=== PATIENT | male | born 1940 | race Caucasian/White ===

== ENCOUNTER 2022-03-01 13:48 | Emergency (ER) | payer OTHER ==
[2022-03-01 15:19] LABS: Absolute Lymphocytes (CBC) 0.9 K/uL (0.7-4.9); Hematocrit 42.8 % (39.6-49.0); MCV 86.7 fL (80-100); MPV 7.9 fL (7.6-11.3); RBC Red Blood Cell Count 4.94 M/uL (4.33-5.43)
[2022-03-01 15:20] LABS: Protime INR 2.38
--- NOTE | 2022-03-01 15:23 | RAD REPORT ---
EXAM DESCRIPTION: CT - Head Brain Wo Cont - 03/01/2022 3:18 pm CLINICAL HISTORY: dizzy Headache, drowsiness COMPARISON: Head Brain Wo Cont dated 06/28/2018 TECHNIQUE: All CT scans are performed using dose optimization technique as appropriate and may inclu de automated exposure control or mA/KV adjustment according to patient size. FINDINGS: No intracranial hemorrhage, hydrocephalus or extra-axial fluid collection.Mild periventric ular and deep white matter chronic microvascular ischemic changes.No areas of brain edema or evidence of midline shift. Vertebral atherosclerosis. The paranasal sinuses and mastoids are clear. The calvarium is intact. IMPRESSION: No acute intracranial abnormality.
[2022-03-01] MEDS ORDERED: MECLIZINE HCL 12.5 MG TAB ONE (15:28)
[2022-03-01 15:34] LABS: Potassium 4.2 mmol/L (3.5-5.1); Troponin High Sensitivity 9.3 pg/mL (<58.9)
--- NOTE | 2022-03-01 15:52 | RAD REPORT ---
EXAM DESCRIPTION: RAD - Chest Single View - 03/01/2022 3:41 pm CLINICAL HISTORY: AMS Chest pain. COMPARISON: Abdomen 1 View (KUB) dated 09/05/2016; ABDOMEN 1 VIEW KUB dated 09/04/2015; CHEST PA AND L AT 2 VIEW dated 08/27/2014; CHEST PA AND LAT 2 VIEW dated 06/30/2008 FINDINGS: Portable technique limits examination quality. The lungs are grossly clear. The heart is normal in size. Postsurgical changes of a CABG.Dual lead pa cer device is in place. IMPRESSION: No acute intrathoracic process suspected.
--- NOTE | 2022-03-01 16:50 | ER ---
Nurse's Notes [facility] Name: Jose Luis Albright Jr Age: 81 yrs Sex: Male : 1940 Arrival Date: 03/01/2022 Time: 13:50 Bed 4 Private MD: Baldomero Valenzuela R Diagnosis: Dizziness and giddiness Presentation: 03/01 13:58 Chief complaint: Patient states: "this has been going on for a while" ; I am very dizzy [facility] the 6 months to a year - I am on two different blood pressure medications; I can't hardly stand and walk; denies room spinning. I feel like I have a lot of anxiety. Chief complaint:. Coronavirus screen: Vaccine status: Patient reports being unvaccinated. Client denies travel out of the [place] in the last 14 days. Ebola Screen: Patient negative for fever greater than or equal to 101.5 degrees Fahrenheit, and additional compatible Ebola Virus Disease symptoms Patient denies exposure to infectious person. Patient denies travel to an Ebola-affected area in the 21 days before illness onset. Initial Sepsis Screen: Does the patient meet any 2 criteria? No. Patient's initial sepsis screen is negative. Does the patient have a suspected source of infection? No. Patient's initial sepsis screen is negative. Risk Assessment: Do you want to hurt yourself or someone else? Patient reports no desire to harm self or others. Onset of symptoms was 2020. 13:58 Method Of Arrival: Ambulatory [facility] 13:58 Acuity: SHAJI 4 jh5 Triage Assessment: 14:02 General: Appears in no apparent distress. slender, Behavior is calm, cooperative, jh5 anxious. Pain: Denies pain. Historical: - Allergies: 14:02 No Known Allergies; [facility] - Home Meds: 14:02 warfarin 1 mg Oral tab [Active]; atorvastatin 10 mg oral tab [Active]; atenolol 25 mg jh5 Oral tab [Active]; amlodipine oral [Active]; sertraline 20 mg/mL oral conc 5 mL once daily [Active]; - PMHx: 14:02 Hypertensive disorder; [facility] - Immunization history:: Adult Immunizations up to date. - Social history:: Smoking status: Patient denies any tobacco usage or history of. Screenin:54 Abuse screen: Denies threats or abuse. Nutritional screening: No deficits noted. tw2 Tuberculosis screening: No symptoms or risk factors identified. Fall Risk Secondary diagnosis (15 points) impaired mobility. Assessment: 14:12 Reassessment: In triage; the insurance underwriter told the patient she would step out and grab a jh5 provider to see him, at that point the patient became very anxious, breathing heavy and stating his vision is now blurry in both eyes. 14:13 Reassessment: Pt is now slowing his breathing and states his vision is clearing up but jh5 a little bit blurry. 15:00 General: Appears in no apparent distress. comfortable, well groomed, Behavior is ph cooperative, appropriate for age, Denies fever, feeling ill. Pain: Denies pain. Neuro: Level of Consciousness is awake, alert, obeys commands, Oriented to person, place, time, situation, Collection Manager are equal bilaterally Moves all extremities. Speech is normal, Facial symmetry appears normal, Pupils are PERRLA, Reports dizziness, paresthesias. Cardiovascular: Capillary refill < 3 seconds in bilateral fingers Patient's skin is warm and dry. Respiratory: Airway is patent Respiratory effort is even, unlabored, Respiratory pattern is regular, symmetrical. GI: No signs and/or symptoms were reported involving the gastrointestinal system. 15:15 Reassessment: Patient appears in no apparent distress at this time. No changes from tw2 previously documented assessment. Patient and/or family updated on plan of care and expected duration. Pain level reassessed. Patient is alert, oriented x 3, equal unlabored respirations, skin warm/dry/pink. 16:15 Reassessment: Patient appears in no apparent distress at this time. No changes from tw2 previously documented assessment. Patient and/or family updated on plan of care and expected duration. Pain level reassessed. Patient is alert, oriented x 3, equal unlabored respirations, skin warm/dry/pink. 17:01 Reassessment: Patient appears in no apparent distress at this time. No changes from tw2 previously documented assessment. Patient and/or family updated on plan of care and expected duration. Pain level reassessed. Patient is alert, oriented x 3, equal unlabored respirations, skin warm/dry/pink. Vital Signs: 13:58 BP 153 / 75; Pulse 64; Resp 18; Temp 98.8; Pulse Ox 100% ; Weight 90.72 kg; Height 6 [facility] ft. 1 in. (185.42 cm); Pain 0/10; 15:15 BP 133 / 66; Pulse 59; Resp 17; Pulse Ox 97% on R/A; tw2 16:15 BP 122 / 67; Pulse 60; Resp 17; Pulse Ox 98% on R/A; tw2 16:49 BP 128 / 63 Supine; Pulse 61; tw2 16:49 BP 146 / 78 Sitting; Pulse 61; tw2 16:49 BP 133 / 68 Standing; Pulse 61; tw2 13:58 Body Mass Index 26.39 (90.72 kg, 185.42 cm) [facility] ED Course: 13:50 Patient arrived in ED. am2 13:50 Baldomero Valenzuela MD is Private Physician. am2 14:02 Triage completed. [facility] 14:15 Bed in low position. Call light in reach. quality assurance monitor on. Pulse ox on. NIBP on. tw2 14:20 Chris Yates MD is Attending Physician. kdr 14:28 Kelsey Butcher RN is Primary Nurse. ph 14:41 Arm band placed on Patient placed in an exam room. ph 15:09 Initial lab(s) drawn, by hi, sent to lab. Inserted saline lock: 22 gauge in right ph forearm, using aseptic technique. Blood collected. 15:20 CT Head Brain wo Cont In Process Unspecified. EDMS 15:43 XRAY Chest (1 view) In Process Unspecified. EDMS 16:49 Baldomero Valenzuela MD is Referral Physician. kdr 16:49 Hazel Cummings MD is Referral Physician. kdr 16:49 Eliseo Emmanuel MD is Referral Physician. kdr 17:00 No provider procedures requiring assistance completed. IV discontinued, intact, tw2 bleeding controlled, No redness/swelling at site. Pressure dressing applied. Administered Medications: 15:41 Drug: Meclizine 25 mg Route: PO; ph 17:01 Follow up: Response: No adverse reaction; Marked relief of symptoms tw2 Medication: 14:54 VIS not applicable for this client. tw2 Outcome: 16:50 Discharge ordered by . kdr 17:00 Discharged to home ambulatory, with family. tw2 17:00 Condition: stable 17:00 Discharge instructions given to patient, family, Instructed on discharge instructions, follow up and referral plans. medication usage, Demonstrated understanding of instructions, follow-up care, medications, Prescriptions given X 1. 17:01 Patient left the ED. tw2 Signatures: Dispatcher [employer] EDMS Chris Yates MD MD [facility] Kelsey Butcher RN RN Brianne Wilson RN RN tw2 Yue Dior 2 Michelle Wang RN RN jh5 Corrections: (The following items were deleted from the chart) 14:12 13:58 Resp 18bpm; Pulse Ox 100%; Temp 98.8F; 90.72 kg; Height 6 ft. 1 in.; BMI: 26.3; jh5 Pain 0/10; jh5
--- NOTE | 2022-03-01 16:51 | EDPHYS ---
Physician Documentation [facility] Name: Jose Luis Albright Jr Age: 81 yrs Sex: Male : 1940 Arrival Date: 03/01/2022 Time: 13:50 Bed 4 Private MD: Baldomero Valenzuela R ED Physician Chris Yates HPI: 03/01 16:16 This 81 yrs old Male presents to ER via Ambulatory with complaints of Doesn't Feel kdr Right, Dizziness, Anxiety. 16:16 The patient presents with dizziness, generalized weakness, lightheadedness, feeling off kdr balance. Onset: The symptoms/episode began/occurred gradually, 1 year(s) ago. Context: occurred at home, occurred while the patient was just prior to the episode the patient experienced no apparent symptoms. Modifying factors: The symptoms are alleviated by holding head still, lying down, the symptoms are aggravated by standing up. Associated signs and symptoms: Pertinent positives: Pertinent negatives: abdominal pain, agitation, ataxia, blurred vision, chest pain, combativeness, confusion, diaphoresis, focal weakness, head injury, headache, nausea, near-syncope, numbness, palpitations, , seizure, shortness of breath, syncope, tingling, vomiting. Severity of symptoms: At their worst the symptoms were very mild mild in the emergency department the symptoms are unchanged. Patient's baseline: Neuro: alert and fully oriented, Motor: no deficits, Ambulation: walks without assistance, Speech: normal, The patient has a previous history of. The patient has experienced similar episodes in the past, chronically. The patient has not recently seen a physician. Historical: - Allergies: 14:02 No Known Allergies; [facility] - Home Meds: 14:02 warfarin 1 mg Oral tab [Active]; atorvastatin 10 mg oral tab [Active]; atenolol 25 mg jh5 Oral tab [Active]; amlodipine oral [Active]; sertraline 20 mg/mL oral conc 5 mL once daily [Active]; - PMHx: 14:02 Hypertensive disorder; [facility] - Immunization history:: Adult Immunizations up to date. - Social history:: Smoking status: Patient denies any tobacco usage or history of. ROS: 16:11 Constitutional: Negative for fever, chills, and weight loss, Eyes: Negative for injury, kdr pain, redness, and discharge, ENT: Negative for injury, pain, and discharge, Neck: Negative for injury, pain, and swelling, Cardiovascular: Negative for chest pain, palpitations, and edema, Respiratory: Negative for shortness of breath, cough, wheezing, and pleuritic chest pain, Abdomen/GI: Negative for abdominal pain, nausea, vomiting, diarrhea, and constipation, Back: Negative for injury and pain, : Negative for injury, bleeding, discharge, and swelling, MS/Extremity: Negative for injury and deformity, Skin: Negative for injury, rash, and discoloration, Psych: Negative for depression, anxiety, suicide ideation, homicidal ideation, and hallucinations, Allergy/Immunology: Negative for hives, rash, and allergies, Endocrine: Negative for neck swelling, polydipsia, polyuria, polyphagia, and marked weight changes, Hematologic/Lymphatic: Negative for swollen nodes, abnormal bleeding, and unusual bruising. 16:11 Neuro: Positive for dizziness, Negative for altered mental status, gait disturbance, headache, hearing loss, loss of consciousness, numbness, seizure activity, speech changes, syncope, near syncope, tremor, visual changes, weakness. Exam: 16:11 Constitutional: This is a well developed, well nourished patient who is awake, alert, kdr and in no acute distress. Head/Face: Normocephalic, atraumatic. Eyes: Pupils equal round and reactive to light, extra-ocular motions intact. Lids and lashes normal. Conjunctiva and sclera are non-icteric and not injected. Cornea within normal limits. Periorbital areas with no swelling, redness, or edema. Neck: Trachea midline, no thyromegaly or masses palpated, and no cervical lymphadenopathy. Supple, full range of motion without nuchal rigidity, or vertebral point tenderness. No Meningismus. Chest/axilla: Normal chest wall appearance and motion. Nontender with no deformity. No lesions are appreciated. Cardiovascular: Regular rate and rhythm with a normal S1 and S2. No gallops, murmurs, or rubs. Normal PMI, no JVD. No pulse deficits. Respiratory: Lungs have equal breath sounds bilaterally, clear to auscultation and percussion. No rales, rhonchi or wheezes noted. No increased work of breathing, no retractions or nasal flaring. Abdomen/GI: Soft, non-tender, with normal bowel sounds. No distension or tympany. No guarding or rebound. No evidence of tenderness throughout. Back: No spinal tenderness. No costovertebral tenderness. Full range of motion. Skin: Warm, dry with normal turgor. Normal color with no rashes, no lesions, and no evidence of cellulitis. MS/ Extremity: Pulses equal, no cyanosis. Neurovascular intact. Full, normal range of motion. Neuro: Awake and alert, GCS 15, oriented to person, place, time, and situation. Cranial nerves II-XII grossly intact. Motor strength 5/5 in all extremities. Sensory grossly intact. Cerebellar exam normal. Normal gait. Psych: Awake, alert, with orientation to person, place and time. Behavior, mood, and affect are within normal limits. 16:11 ECG was reviewed by the Attending Physician. Vital Signs: 13:58 BP 153 / 75; Pulse 64; Resp 18; Temp 98.8; Pulse Ox 100% ; Weight 90.72 kg; Height 6 5 ft. 1 in. (185.42 cm); Pain 0/10; 15:15 BP 133 / 66; Pulse 59; Resp 17; Pulse Ox 97% on R/A; tw2 16:15 BP 122 / 67; Pulse 60; Resp 17; Pulse Ox 98% on R/A; tw2 16:49 BP 128 / 63 Supine; Pulse 61; tw2 16:49 BP 146 / 78 Sitting; Pulse 61; tw2 16:49 BP 133 / 68 Standing; Pulse 61; tw2 13:58 Body Mass Index 26.39 (90.72 kg, 185.42 cm) [facility] MDM: 16:11 Data reviewed: vital signs, nurses notes, lab test result(s), radiologic studies. kdr Counseling: I had a detailed discussion with the patient and/or guardian regarding: the historical points, exam findings, and any diagnostic results supporting the discharge/admit diagnosis, lab results, radiology results, the need for outpatient follow up. 16:50 Patient medically screened. [facility] 03/01 14:20 Order name: Basic Metabolic Panel; Complete Time: 16:08 [facility] 03/01 14:20 Order name: CBC with Diff; Complete Time: 16: [facility] 03/01 14:20 Order name: Troponin HS; Complete Time: 16: [facility] 03/01 14:20 Order name: XRAY Chest (1 view); Complete Time: 16:08 [facility] 03/01 14:58 Order name: CT Head Brain wo Cont; Complete Time: 16:08 [facility] 03/01 14:59 Order name: PT-INR; Complete Time: 16:08 ph 03/01 14:20 Order name: EKG; Complete Time: 14:21 kdr 03/01 14:20 Order name: Cardiac monitoring; Complete Time: 14:59 kdr 03/01 14:20 Order name: EKG - Nurse/Tech; Complete Time: 14:59 [facility] 03/01 14:20 Order name: IV Saline Lock; Complete Time: 14:59 kdr 03/01 14:20 Order name: Labs collected and sent; Complete Time: 14: kdr 03/01 14:20 Order name: O2 Per Protocol; Complete Time: 14: [facility] 03/01 14:20 Order name: O2 Sat Monitoring; Complete Time: 14: [facility] 03/01 16:41 Order name: Orthostatic Blood Pressure; Complete Time: 17:01 kdr EC:11 Rate is 60 beats/min. Rhythm is regular, Paced with No ectopy. QRS [place] is Normal. OR kdr interval is normal. QRS interval is normal. QT interval is normal. Clinical impression: NSR w/ Non-specific ST/T Changes, No evidence of ischemia, and Paced rhythm. Administered Medications: 15:41 Drug: Meclizine 25 mg Route: PO; ph 17:01 Follow up: Response: No adverse reaction; Marked relief of symptoms tw2 Disposition Summary: 03/01/22 16:50 Discharge Ordered Location: Home kdr Problem: an ongoing problem kdr Symptoms: have improved kdr Condition: Stable kdr Diagnosis - Dizziness and giddiness kdr Followup: kdr - With: Baldomero Valenzuela MD - When: 2 - 3 days - Reason: If symptoms return, Further diagnostic work-up, Recheck today's complaints, Continuance of care, Re-evaluation by your physician Followup: kdr - With: Hazel Cummings MD - When: 2 - 3 days - Reason: If symptoms return, Further diagnostic work-up, Recheck today's complaints, Continuance of care, Re-evaluation by your physician Followup: kdr - With: Eliseo Emmanuel MD - When: 2 - 3 days - Reason: If symptoms return, Further diagnostic work-up, Recheck today's complaints, Continuance of care, Re-evaluation by your physician Discharge Instructions: - Discharge Summary Sheet kdr - Dizziness, [id number] kdr Forms: - Medication Reconciliation Form kdr - Thank You Letter kdr Prescriptions: - Meclizine 25 mg Oral Tablet - take 1 tablet by ORAL route every 8 hours As needed; 30 tablet; Refills: 0, kdr Product Selection Permitted Signatures: Dispatcher [employer] EDChris Rothman MD MD [facility] Kelsey Butcher RN RN Michelle Wang RN RN jh5 WilsonBrianne RN tw2
[2022-03-01 18:14] VITALS: TEMP 98.8
[2022-03-01 18:35] VITALS: O2SAT 98
[2022-03-01 18:38] VITALS: BP 133/68
--- NOTE | 2022-03-02 06:25 | EKG ---
Test Date: 2022-03-01 Test Time: 14:59:51 Software Intern: ROSS MEASUREMENT RESULTS: Intervals: Rate: 60 DE: 216 QRSD: 136 QT: 470 QTc: 470 Mullin: P: 99 DE: 216 QRS: -70 T: 93 INTERPRETIVE STATEMENTS: Sinus rhythm with 1st degree AV block Right atrial enlargement Left axis deviation Left ventricular hypertrophy with QRS widening and repolarization abnormality Inferior infarct, age undetermined Anterolateral infarct, age undetermined Abnormal ECG Compared to ECG 10/26/1999 07:32:00 Atrial abnormality now present Left ventricular hypertrophy now present Early repolarization now present Myocardial infarct finding now present Sinus bradycardia no longer present Right bundle-branch block no longer present Electronically Signed On 03-02-22 06:23:51 CDT by Ramsey Urias
== END 2022-03-01 17:01 | disposition home or self-care (01) ==
LOC: ER 13:48
DX: R42 Dizziness and giddiness (principal); I10 Essential (primary) hypertension; Z79.01 Long term (current) use of anticoagulants
CPT/HCPCS: 85025; 80048; 36415; 85610; 84484; 70450; 71045; J8597; 93005

== ENCOUNTER 2025-02-26 13:18 | Emergency (ER) | payer OTHER ==
[2025-02-26 13:58] LABS: Absolute Lymphocytes (CBC) 1.1 K/uL (0.7-4.9); Hematocrit 40.3 % (39.6-49.0); Hemoglobin 13.6 g/dL (13.6-17.9); MCH 28.4 pg (27.0-35.0); MCHC 33.8 g/dL (32.0-36.0); MCV 84.1 fL (80-100); MPV 7.6 fL (7.6-11.3); Nucleated RBC Absolute Count 0.0 (0-0); Nucleated Red Blood Cells % 0.0 % (0-0); RBC Red Blood Cell Count 4.79 M/uL (4.33-5.43); White Blood Count 8.20 thou/uL (4.3-10.9)
[2025-02-26] MEDS ORDERED: NA CHLORIDE 0.9% 1,000 ML ONE (14:38)
[2025-02-26 14:49] LABS: PT Prothrombin Time 56.8 SECONDS (10-13.0); Protime INR 5.28
[2025-02-26 15:04] LABS: ALT/SGPT 27.0 U/L (16-61); AST/SGOT 29.0 U/L (15-37); Albumin 3.0 g/dL (3.4-5.0); Albumin/Globulin Ratio 0.7 (1.1-1.8); Alkaline Phosphatase 100.0 U/L (45-117); Anion Gap 9.8 mEq/L (5.0-15.0); BUN Blood Urea Nitrogen 10.0 mg/dL (7-18); Bilirubin Indirect, Calculated 0.4 mg/dL (0.2-0.8); Globulin 4.3 g/dL (2.3-3.5); Glucose Level 125.0 mg/dL (74-106); Lipase 27.0 U/L (13-75); Magnesium 2.0 mg/dL (1.6-2.4); NT PRO-BNP 868.0 pg/mL (<450); Potassium 3.8 mEq/L (3.5-5.1); Troponin High Sensitivity 12.8 pg/mL (<58.9)
[2025-02-26] MEDS ORDERED: MORPHINE 4 MG/ML SYR ONE ×2 (15:26→17:05)
[2025-02-26] MEDS ORDERED: ONDANSETRON 4 MG/2 ML VIAL ONE (15:26)
--- NOTE | 2025-02-26 15:30 | RAD REPORT ---
EXAMINATION: ONE VIEW CHEST XR CLINICAL INDICATION: Male, 84 years old.,ABDOMINAL DISTENTION TECHNIQUE: Frontal chest projection is submitted. Examination is limited by patient positioning and t echnique. COMPARISON: 03/01/2022 FINDINGS: The lungs are well inflated and clear. No pneumothorax or sizable effusion. The heart is normal in s ize. Mediastinal contours are unchanged with sequelae of CABG. Left chest wall pacer in place. IMPRESSION: No acute intrathoracic abnormalities. Stable findings as above.
--- NOTE | 2025-02-26 16:57 | RAD REPORT ---
EXAM: CT CHEST, ABDOMEN AND PELVIS WITH CONTRAST CLINICAL INDICATION: Male, 84 years old. Abdominal distention;Pain TECHNIQUE: CT chest, abdomen, and pelvis was performed, following the administration of contrast, as per department protocol. Axial, sagittal and coronal reconstructions were obtained. One or more of the following dose reduction techniques were used: Automated exposure control, adjustment of the mA a nd/or kV according to patient size, and/or iterative reconstruction. Unless otherwise specified, incidental findings do not require dedicated imaging follow-up. COMPARISON: CT abdomen 11/19/2024 FINDINGS: LUNGS AND AIRWAYS: No evidence of airspace or interstitial process. No nodules. PLEURA: No pleural effusion. No pneumothorax. MEDIASTINUM AND LYMPH NODES: No mediastinal mass or fluid collection. Normal size mediastinal, hilar, and axillary lymph nodes. Prosthetic aortic valve in place. Proximal prominence of the aortic arch, measuring 3.8 cm in caliber. 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 THORACIC AORTA: Normal caliber and configuration. PULMONARY ARTERIES: Normal caliber. OSSEOUS STRUCTURES AND CHEST WALL: Intact. LIVER: Normal in size and contour. No focal lesion or biliary dilitation. BILIARY SYSTEM: Contracted gallbladder with numerous gallstones. PANCREAS: No mass, ductal dilation, or seven-pancreatic fluid. SPLEEN: Normal size. No focal lesion. ADRENALS: Normal; no mass. KIDNEYS AND URETERS: Normal size and contour. Lower pole exophytic 5.2 cm fluid density cyst and a sm aller anterior interpolar cortex 2.8 cm cyst. These appear stable. No hydronephrosis. URINARY BLADDER: Normal contour. GASTROINTESTINAL TRACT: No bowel obstruction, free air, significant free fluid or abscess. APPENDIX: No inflammatory changes in region of appendix. LYMPH NODES: No lymphadenopathy. ABDOMINAL AORTA AND OTHER VESSELS: Normal caliber aorta and IVC. MUSCULOSKELETAL: No acute or suspicious osseous abnormality. Left inguinal hernia containing fat. Mild prostatic calcifications. IMPRESSION: No acute abnormalities seen in the chest, abdomen or pelvis. Sequelae of prosthetic aortic valve replacement, and ectasia of the proximal aortic arch. Other incidental findings including cholelithiasis.
[2025-02-26] MEDS ORDERED: DIAZEPAM 5 MG TABLET ONE (17:05)
--- NOTE | 2025-02-26 17:26 | EDPHYS ---
Physician Documentation [facility] Name: Jose Luis Albright Jr Age: 84 yrs Sex: Male : 1940 Arrival Date: 02/26/2025 Time: 13:18 Bed 8 Private MD: ED Physician Jerel Baker HPI: 02/26 16:30 This 84 yrs old Male presents to ER via Wheelchair with complaints of Back akin Pain. 16:30 The patient presents with pain that is acute, with no known mechanism of injury. The akin symptoms are located in the low back, lumbar area, left low back and right low back. Onset: The symptoms/episode began/occurred this morning, today. The pain does not radiate. Associated signs and symptoms: The patient has no apparent associated signs or symptoms. The problem was sustained from unknown cause. Modifying factors: The patient symptoms are alleviated by nothing, remaining still, the patient symptoms are aggravated by any movement, bending, lifting, movement, standing, supine position. Severity of symptoms: At their worst the symptoms were moderate, in the emergency department the symptoms are unchanged. The patient has not experienced similar symptoms in the past. Historical: - Allergies: 13:39 No Known Allergies; ll1 - PMHx: 13:39 Hypertensive disorder; parkinsons (Hypertensive disorder); ll1 - PSHx: 13:39 valve replaced; pacemaker; ll1 - Immunization history:: Adult Immunizations. - Social history:: Smoking status: Patient/guardian denies using tobacco, the patient reports quitting approximately 50 years ago. ROS: 16:34 Constitutional: Negative for fever, chills, and weight loss, Eyes: Negative for injury, akin pain, redness, and discharge, ENT: Negative for injury, pain, and discharge, Neck: Negative for injury, pain, and swelling, Cardiovascular: Negative for chest pain, palpitations, and edema, Respiratory: Negative for shortness of breath, cough, wheezing, and pleuritic chest pain, Abdomen/GI: Negative for abdominal pain, nausea, vomiting, diarrhea, and constipation, : Negative for injury, bleeding, discharge, and swelling, MS/Extremity: Negative for injury and deformity, Skin: Negative for injury, rash, and discoloration, Neuro: Negative for headache, weakness, numbness, tingling, and seizure, Psych: Negative for depression, anxiety, suicide ideation, homicidal ideation, and hallucinations, Allergy/Immunology: Negative for hives, rash, and allergies, Endocrine: Negative for neck swelling, polydipsia, polyuria, polyphagia, and marked weight changes, Hematologic/Lymphatic: Negative for swollen nodes, abnormal bleeding, and unusual bruising, 16:34 Back: Positive for injury or acute deformity, decreased range of motion, pain at rest, pain with movement, of the lumbar area, left low back and right low back, Exam: 16:34 Constitutional: This is a well developed, well nourished patient who is awake, alert, akin and in no acute distress. Head/Face: Normocephalic, atraumatic. Eyes: Pupils equal round and reactive to light, extra-ocular motions intact. Lids and lashes normal. Conjunctiva and sclera are non-icteric and not injected. Cornea within normal limits. Periorbital areas with no swelling, redness, or edema. ENT: Nares patent. No nasal discharge, no septal abnormalities noted. Tympanic membranes are normal and external auditory canals are clear. Oropharynx with no redness, swelling, or masses, exudates, or evidence of obstruction, uvula midline. Mucous membranes moist. Neck: Trachea midline, no thyromegaly or masses palpated, and no cervical lymphadenopathy. Supple, full range of motion without nuchal rigidity, or vertebral point tenderness. No Meningismus. Chest/axilla: Normal chest wall appearance and motion. Nontender with no deformity. No lesions are appreciated. Cardiovascular: Regular rate and rhythm with a normal S1 and S2. No gallops, murmurs, or rubs. Normal PMI, no JVD. No pulse deficits. Respiratory: Lungs have equal breath sounds bilaterally, clear to auscultation and percussion. No rales, rhonchi or wheezes noted. No increased work of breathing, no retractions or nasal flaring. Abdomen/GI: Soft, non-tender, with normal bowel sounds. No distension or tympany. No guarding or rebound. No evidence of tenderness throughout. Male : Normal genitalia with no discharge or lesions. Skin: Warm, dry with normal turgor. Normal color with no rashes, no lesions, and no evidence of cellulitis. MS/ Extremity: Pulses equal, no cyanosis. Neurovascular intact. Full, normal range of motion., bilateral aka Neuro: Awake and alert, GCS 15, oriented to person, place, time, and situation. Cranial nerves II-XII grossly intact. Motor strength 5/5 in all extremities. Sensory grossly intact. Cerebellar exam normal. Normal gait. Psych: Awake, alert, with orientation to person, place and time. Behavior, mood, and affect are within normal limits. 16:34 Back: pain, that is moderate, that is severe, of the lumbar area, left low back and right low back, ROM is painful, with flexion, with extension, normal spinal alignment noted, CVA tenderness, is absent, muscle spasm, is appreciated in the left low back, left mid back, right mid back and right low back, 16:34 Musculoskeletal/extremity: Extremities: all appear grossly normal, with no appreciated pain with palpation, ROM: intact in all extremities, full active range of motion, full passive range of motion, Circulation is intact in all extremities. Sensation intact. Compartment Syndrome exam of affected extremity: is normal. Weight bearing: able to fully bear weight, without difficulty, DVT Exam: No signs of deep vein thrombosis. no pain, no swelling, no tenderness, negative Homans' sign noted on exam, no appreciated bluish discoloration, no erythema, no increased warmth, Vital Signs: 13:40 BP 116 / 65; Pulse 64; Resp 17; Temp 97.5; Pulse Ox 96% ; Weight 97.52 kg; Height 6 ft. ll1 1 in. ; Pain 10/10; 17:21 BP 136 / 72; Pulse 69; Resp 16; Pulse Ox 95% ; bp 13:40 Body Mass Index 28.37 (97.52 kg, 185.42 cm) ll1 13:40 Pain Scale: Adult ll1 Austin Coma Score: 16:34 Eye Response: spontaneous(4). Motor Response: obeys commands(6). Verbal Response: akin oriented(5). Total: 15. MDM: 13:38 Medical Screening Exam initiated akin 16:36 Differential diagnosis: chronic back pain, Fatigue Fracture Metastatic Disease Neoplasm akin Obesity Osteoarthritis Osteoporosis Pyelonephritis Renal Infarction ruptured disc, Scoliosis sickle cell crisis, spinal injury, sprain, Ureterolithiasis vertebral fracture. Data reviewed: vital signs, nurses notes, lab test result(s), EKG, radiologic studies, CT scan, plain films. Consideration of Admission/Observation Escalation of care including admission/observation considered. I considered the following discharge prescriptions or medication management in the emergency department Medications were administered in the Emergency Department. See MAR. Independent interpretation of the following test(s) in the Emergency Department CT Scan: My interpretation is CT LUMBAR. Historians other than the Patient: Family Member: SON WELL INFORMED. 02/26 13:39 Order name: Basic Metabolic Panel; Complete Time: 16:25 [facility] 02/26 13:39 Order name: CBC with Diff; Complete Time: 16:25 [facility] 02/26 13:39 Order name: LFT's; Complete Time: 16:25 [facility] 02/26 13:39 Order name: Magnesium; Complete Time: 16:25 [facility] 02/26 13:39 Order name: NT PRO-BNP; Complete Time: 16:25 [facility] 02/26 13:39 Order name: PT-INR; Complete Time: 16:25 [facility] 02/26 13:39 Order name: Troponin HS; Complete Time: 16:25 [facility] 02/26 13:39 Order name: Lipase; Complete Time: 16:25 [facility] 02/26 13:39 Order name: UA Rfx Jose Cult if indicated 02/26 13:39 Order name: XRAY Chest (1 view); Complete Time: 16:25 [facility] 02/26 13:39 Order name: CT Chest, Abdomen, Pelvis - W/Contrast; Complete Time: 17:10 [facility] 02/26 13:39 Order name: Cardiac monitoring; Complete Time: 14:34 [facility] 02/26 13:39 Order name: EKG - Nurse/Tech; Complete Time: 13:53 [facility] 02/26 13:39 Order name: IV Saline Lock; Complete Time: 14:34 [facility] 02/26 13:39 Order name: Labs collected and sent; Complete Time: 13:53 [facility] 02/26 13:39 Order name: O2 Per Protocol; Complete Time: 14:34 [facility] 02/26 13:39 Order name: O2 Sat Monitoring; Complete Time: 14:34 [facility] 02/26 14:03 Order name: Labs - recollect needed: recollect green and blue top; Complete Time: 14:33 bd Administered Medications: 14:43 Drug: NS 0.9% IV 1000 ml IV at 1000 ml once; to be given as a bolus over 60 minutes bp Route: IV; Rate: 1000 ml; Site: right forearm; 18:04 Follow up: IV Status: Completed infusion bp 15:29 Drug: Ondansetron IVP 4 mg IVP once; over 2 minutes Route: IVP; Site: right forearm; bp 18:04 Follow up: Response: No adverse reaction bp 15:30 Drug: morphine IVP or IV 4 mg IVP once over 4 mins Route: IVP; Infused Over: 4 mins; bp Site: right forearm; 18:04 Follow up: Response: No adverse reaction bp 16:41 CANCELLED (Duplicate Order): [id number] mg IVP once akin 17:12 Drug: Decadron - Dexamethasone IVP 10 mg IVP once Route: IVP; Site: right antecubital; bp 18:04 Follow up: Response: No adverse reaction bp 17:12 Drug: Diazepam PO 10 mg PO once Route: PO; bp 18:04 Follow up: Response: No adverse reaction bp 17:12 Drug: morphine IVP or IV 4 mg IVP once over 4 mins Route: IVP; Infused Over: 4 mins; bp Site: right antecubital; 18:04 Follow up: Response: No adverse reaction bp Disposition Summary: 02/26/25 17:25 Discharge Ordered Notes: Location: Home akin Problem: new akin Symptoms: have improved akin Condition: Stable akin Diagnosis - Low back pain akin - Other injury of muscle, fascia and tendon of lower back akin - Presence of cardiac pacemaker akin - Abnormal coagulation profile akin - USP (current) use of anticoagulants - INR 5.8 akin Followup: akin - With: Private Physician - When: 2 - 3 days - Reason: Recheck today's complaints, Continuance of care, Re-evaluation by your physician Followup: akin - With: Eliseo Emmanuel MD - When: 2 - 3 days - Reason: Recheck today's complaints, Re-evaluation by your physician Followup: akin - With: Jakub Reed MD - When: 2 - 3 days - Reason: Recheck today's complaints, Re-evaluation by your physician Discharge Instructions: - Discharge Summary Sheet akin - Acute Back Pain, Adult akin - Chronic Back Pain akin - Musculoskeletal Pain akin - Warfarin Coagulopathy akin - Pacemaker Implantation, Adult akin - Pacemaker Implantation, Adult, Care After akin - Bleeding Precautions When on Anticoagulant Therapy, Adult akin Forms: - Medication Reconciliation Form akin - Antibiotic Education akin - Prescription Opioid Use akin - Patient Portal Instructions akin - Leadership Thank You Letter akin Prescriptions: - Pepcid 20 mg Oral tablet - take 1 tablet ORAL route every 12 hours for 21 days; 42 tablet; Refills: 0, [facility] Product Selection Permitted - methocarbamol 750 mg Oral tablet - take 1 tablet ORAL route 4 times per day; 28 tablet; Refills: 0, Product [facility] Selection Permitted - Tylenol-Codeine #3 300mg-30mg Oral tablet - take 2 tablets ORAL route every 6 hours As needed; 20 tablet; Refills: 0, [facility] Product Selection Permitted - Dexamethasone 4mg Oral tablet - take 1 tablet ORAL route daily for 4 days; 4 tablet; Refills: 0, Product akin Selection Permitted Signatures: Dispatcher [employer] EDMS Selene Weiss Corey, MD MD cha Peltier, Brian RN RN bp Kaur Christianson RN RN ll1 Corrections: (The following items were deleted from the chart) 13:40 13:40 BASIC METABOLIC PANEL+C.LAB.BRZ ordered. EDMS EDMS 13:40 13:40 CBC+H.LAB.BRZ ordered. EDMS EDMS 13:40 13:40 HEPATIC FUNCTION+C.LAB.BRZ ordered. EDMS EDMS 13:40 13:40 MAGNESIUM+C.LAB.BRZ ordered. EDMS EDMS 13:40 13:40 PROBNP+C.LAB.BRZ ordered. EDMS EDMS 13:40 13:40 PROTIME (+INR)+COAG.LAB.BRZ ordered. EDMS EDMS 13:40 13:40 Troponin High Sensitivity+C.LAB.BRZ ordered. EDMS EDMS 13:40 13:40 LIPASE+C.LAB.BRZ ordered. EDMS EDMS 13:40 13:40 UA Rfx Jose Cult if indicated+U.LAB.BRZ ordered. EDMS EDMS 13:40 13:40 Chest Single View+RAD.RAD.BRZ ordered. EDMS EDMS 13:40 13:40 Chest Abdomen Pelvis W Con+CT.RAD.BRZ ordered. EDMS EDMS 16:41 16:29 Ketorolac IVP 30 mg IVP once ordered. [facility]
--- NOTE | 2025-02-26 17:26 | ER ---
Nurse's Notes [facility] Name: Jose Luis Albright Jr Age: 84 yrs Sex: Male : 1940 Arrival Date: 02/26/2025 Time: 13:18 Bed 8 Private MD: Diagnosis: Low back pain;Other injury of muscle, fascia and tendon of lower back;Presence of cardiac pacemaker;Abnormal coagulation profile;care home (current) use of anticoagulants-INR 5.8 Presentation: 02/26 13:40 Chief complaint: Patient states: Back pain for 1 month, worse for 3 days. Coronavirus ll1 screen: Client denies travel out of the [place] in the last 14 days. At this time, the client does not indicate any symptoms associated with coronavirus-19. Ebola Screen: Patient denies travel to an Ebola-affected area in the 21 days before illness onset. Initial Sepsis Screen: Does the patient meet any 2 criteria? No. Patient's initial sepsis screen is negative. Does the patient have a suspected source of infection? No. Patient's initial sepsis screen is negative. Risk Assessment: Do you want to hurt yourself or someone else? Patient reports no desire to harm self or others. Onset of symptoms was January 26, 2025. 13:40 Method Of Arrival: Wheelchair ll1 13:40 Acuity: SHAJI 3 ll1 Triage Assessment: 17:21 General: Appears in no apparent distress. uncomfortable, Behavior is calm, cooperative, bp appropriate for age. Pain: Complains of pain in back. EENT: No deficits noted. Neuro: No deficits noted. Cardiovascular: No deficits noted. Respiratory: No deficits noted. GI: No signs and/or symptoms were reported involving the gastrointestinal system. : No signs and/or symptoms were reported regarding the genitourinary system. Derm: No deficits noted. Musculoskeletal: Reports pain in back. Historical: - Allergies: 13:39 No Known Allergies; ll1 - PMHx: 13:39 Hypertensive disorder; parkinsons (Hypertensive disorder); ll1 - PSHx: 13:39 valve replaced; pacemaker; ll1 - Immunization history:: Adult Immunizations. - Social history:: Smoking status: Patient/guardian denies using tobacco, the patient reports quitting approximately 50 years ago. Screenin:22 [facility] ED Fall Risk Assessment (Adult) History of falling in the last 3 months, bp including since admission No falls in past 3 months (0 pts) Confusion or Disorientation No (0 pts) Intoxicated or Sedated No (0 pts) Impaired Gait No (0 pts) Mobility Assist Device Used No (0 pt) Altered Elimination No (0 pt) Score/Fall Risk Level 0 - 2 = Low Risk Oriented to surroundings. Abuse screen: Denies threats or abuse. Denies injuries from another. Nutritional screening: No deficits noted. Tuberculosis screening: No symptoms or risk factors identified. Assessment: 14:27 Reassessment: Patient and/or family updated on plan of care and expected duration. Pain ll1 level reassessed. 17:22 Reassessment: Patient appears in no apparent distress at this time. Patient and/or bp family updated on plan of care and expected duration. Pain level reassessed. 17:26 Reassessment: DISPO ON HOLD FOR LAB RESULTS. bp 18:05 GI: Bowel sounds present X 4 quads. Abd is soft X 4 quads. bp Vital Signs: 13:40 BP 116 / 65; Pulse 64; Resp 17; Temp 97.5; Pulse Ox 96% ; Weight 97.52 kg; Height 6 ft. ll1 1 in. ; Pain 10/10; 17:21 BP 136 / 72; Pulse 69; Resp 16; Pulse Ox 95% ; bp 13:40 Body Mass Index 28.37 (97.52 kg, 185.42 cm) ll1 13:40 Pain Scale: Adult ll1 Minter Coma Score: 16:34 Eye Response: spontaneous(4). Motor Response: obeys commands(6). Verbal Response: akin oriented(5). Total: 15. ED Course: 13:20 Patient arrived in ED. mr 13:38 Jerel Baker MD is Attending Physician. akin 13:42 Triage completed. ll1 13:42 Arm band placed on. ll1 13:53 Basic Metabolic Panel Sent. bc6 13:53 CBC with Diff Sent. bc6 13:53 LFT's Sent. bc6 13:53 Magnesium Sent. bc6 13:53 NT PRO-BNP Sent. bc6 13:53 PT-INR Sent. bc6 13:53 Troponin HS Sent. bc6 13:55 Missed attempt(s): 20 gauge in right antecubital area. Bleeding controlled, band aid bc6 applied, catheter tip intact. 14:15 XRAY Chest (1 view) In Process Unspecified. EDMS 14:23 Samuel Dodge, RN is Primary Nurse. bp 14:27 Patient placed in an exam room, on a stretcher. ll1 14:34 Lab(s) recollected, by me, sent to lab. Inserted saline lock: 20 gauge in right bp forearm, using aseptic technique. Blood collected. Flushed with 10 mL NS. 15:19 CT Chest, Abdomen, Pelvis - W/Contrast In Process Unspecified. EDMS 17:22 Patient has correct armband on for positive identification. bp 17:25 Eliseo Emmanuel MD is Referral Physician. akin 17:26 Jakub Reed MD is Referral Physician. akin 18:03 No provider procedures requiring assistance completed. IV discontinued, intact, bp bleeding controlled, No redness/swelling at site. Pressure dressing applied. 18:04 Provided Education on: NA. bp Administered Medications: 14:43 Drug: NS 0.9% IV 1000 ml IV at 1000 ml once; to be given as a bolus over 60 minutes bp Route: IV; Rate: 1000 ml; Site: right forearm; 18:04 Follow up: IV Status: Completed infusion bp 15:29 Drug: Ondansetron IVP 4 mg IVP once; over 2 minutes Route: IVP; Site: right forearm; bp 18:04 Follow up: Response: No adverse reaction bp 15:30 Drug: morphine IVP or IV 4 mg IVP once over 4 mins Route: IVP; Infused Over: 4 mins; bp Site: right forearm; 18:04 Follow up: Response: No adverse reaction bp 16:41 CANCELLED (Duplicate Order): [id number] mg IVP once akin 17:12 Drug: Decadron - Dexamethasone IVP 10 mg IVP once Route: IVP; Site: right antecubital; bp 18:04 Follow up: Response: No adverse reaction bp 17:12 Drug: Diazepam PO 10 mg PO once Route: PO; bp 18:04 Follow up: Response: No adverse reaction bp 17:12 Drug: morphine IVP or IV 4 mg IVP once over 4 mins Route: IVP; Infused Over: 4 mins; bp Site: right antecubital; 18:04 Follow up: Response: No adverse reaction bp Medication: 18:05 VIS not applicable for this client. bp Outcome: 17:25 Discharge ordered by . akin 18:03 Discharged to home via wheelchair, with family, bp 18:03 Condition: stable 18:03 Discharge instructions given to patient, family, Instructed on discharge instructions, follow up and referral plans. Demonstrated understanding of instructions, follow-up care, medications, Prescriptions given X 4, 18:05 Patient left the ED. bp Signatures: Dispatcher [employer] EDPA Jerel Baker MD MD cha Rivera, Mary, [facility] mr Samuel Dodge, RN RN Kaur Lubin RN RN ll1 [facility]
[2025-02-26 17:30] LABS: Urine Microscopic Reflex YN NO UMIC
[2025-02-27 01:11] VITALS: TEMP 97.5
[2025-02-27 01:22] VITALS: BP 136/72; O2SAT 95
== END 2025-02-26 18:05 | disposition home or self-care (01) ==
LOC: ER 13:18
DX: S39.092A Other injury of muscle, fascia and tendon of lower back, initial encounter (principal); R79.1 Abnormal coagulation profile; Z79.01 Long term (current) use of anticoagulants; Z95.0 Presence of cardiac pacemaker; I10 Essential (primary) hypertension
CPT/HCPCS: 85025; 80048; 36415; 83735; 85610; 80076; 81003; 84484; 83690; 83880; 71260; 74177; 71045; Q9967; J1100; J2405; J7030; 93005

== ENCOUNTER 2025-03-05 06:05 | Emergency (ER) | payer OTHER ==
[2025-03-05] MEDS ORDERED: ONDANSETRON 4 MG/2 ML VIAL ONE (06:37)
[2025-03-05] MEDS ORDERED: MORPHINE 4 MG/ML SYR ONE (06:38)
[2025-03-05 06:45] LABS: Absolute Lymphocytes (CBC) 1.1 K/uL (0.7-4.9); Hematocrit 43.7 % (39.6-49.0); Hemoglobin 14.7 g/dL (13.6-17.9); MCH 28.2 pg (27.0-35.0); MCHC 33.6 g/dL (32.0-36.0); MCV 84.0 fL (80-100); MPV 8.0 fL (7.6-11.3); Nucleated RBC Absolute Count 0.0 (0-0); Nucleated Red Blood Cells % 0.1 % (0-0); RBC Red Blood Cell Count 5.20 M/uL (4.33-5.43); White Blood Count 13.30 thou/uL (4.3-10.9)
[2025-03-05] MEDS ORDERED: FAMOTIDINE 20 MG/2 ML VIAL IV ONE (07:25)
[2025-03-05] MEDS ORDERED: DIAZEPAM 5 MG TABLET ONE (07:25)
[2025-03-05 08:01] LABS: ALT/SGPT 89.0 U/L (16-61); AST/SGOT 46.0 U/L (15-37); Albumin 3.0 g/dL (3.4-5.0); Alkaline Phosphatase 106.0 U/L (45-117); Anion Gap 11.5 mEq/L (5.0-15.0); BUN Blood Urea Nitrogen 13.0 mg/dL (7-18); Glucose Level 108.0 mg/dL (74-106); Magnesium 1.9 mg/dL (1.6-2.4); NT PRO-BNP 617.0 pg/mL (<450); Potassium 3.5 mEq/L (3.5-5.1); Troponin High Sensitivity 19.2 pg/mL (<58.9)
--- NOTE | 2025-03-05 08:08 | RAD REPORT ---
EXAMINATION: ONE VIEW CHEST XR CLINICAL INDICATION: Male, 84 years old.,COUGH TECHNIQUE: Frontal chest projection is submitted. Examination is limited by patient positioning and t echnique. COMPARISON: 02/26/2025 FINDINGS: The lungs are well inflated with mild hyperlucency, and clear. No pneumothorax or sizable effusion. The heart is normal in size. Mediastinal contours are unchanged with tortuosity of the thoracic aorta. 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 IMPRESSION: No acute intrathoracic abnormalities.
[2025-03-05 08:11] LABS: Bilirubin Indirect, Calculated 0.9 mg/dL (0.2-0.8)
[2025-03-05 08:12] LABS: Albumin/Globulin Ratio 0.9 (1.1-1.8); Globulin 3.5 g/dL (2.3-3.5)
--- NOTE | 2025-03-05 08:24 | ER ---
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 al5 Coronavirus screen: At this time, the client does not indicate any symptoms associated with coronavirus-19. Ebola Screen: No symptoms or risks identified at this time. Initial Sepsis Screen: Does the patient meet any 2 criteria? No. Patient's initial sepsis screen is negative. Does the patient have a suspected source of infection? No. Patient's initial sepsis screen is negative. Risk Assessment: Do you want to hurt yourself or someone else? Patient reports no desire to harm self or others. Onset of symptoms was March 05, 2025. 06:14 Method Of Arrival: EMS: [facility] al5 06:14 Acuity: SHAJI 4 al5 Triage Assessment: 06:15 General: Appears in no apparent distress. uncomfortable, Behavior is calm, cooperative. al5 Pain: Complains of pain in back Pain currently is 10 out of 10 on a pain scale. EENT: No signs and/or symptoms were reported regarding the EENT system. Neuro: Level of Consciousness is awake, alert, obeys commands, Oriented to person, place, time, situation. Cardiovascular: Capillary refill < 3 seconds Patient's skin is warm and dry. Respiratory: Airway is patent Respiratory effort is even, unlabored, Respiratory pattern is regular, symmetrical. GI: Abdomen is non-distended. : No signs and/or symptoms were reported regarding the genitourinary system. Derm: Skin is intact, is healthy with good turgor, Skin is pink, warm \T\ dry. normal. Musculoskeletal: Circulation, motion, and sensation intact. Range of motion: limited in legs due to pain. Historical: - Allergies: 06:15 No Known Allergies; al5 - PMHx: 06:15 Hypertensive disorder; Parkinsons; Hypercholesterolemia; al5 - PSHx: 06:15 pacemaker; valve replaced; al5 - Immunization history:: Adult Immunizations up to date. - Infectious Disease History:: Denies. - Social history:: Smoking status: Patient denies any tobacco usage or history of. Screenin:20 [facility] ED Fall Risk Assessment (Adult) History of falling in the last 3 months, al5 including since admission No falls in past 3 months (0 pts) Confusion or Disorientation No (0 pts) Intoxicated or Sedated No (0 pts) Impaired Gait Yes (1 pt) Mobility Assist Device Used Yes (1 pt) Altered Elimination No (0 pt) Score/Fall Risk Level 0 - 2 = Low Risk Oriented to surroundings, Maintained a safe environment, Hourly rounding (assess needs \T\ fall precautionary measures) done. Abuse screen: Denies threats or abuse. Denies injuries from another. Nutritional screening: No deficits noted. Tuberculosis screening: No symptoms or risk factors identified. Assessment: 06:17 Reassessment: see triage assessment. al5 06:45 General: Appears uncomfortable, Behavior is calm, cooperative. Neuro: No deficits jp5 noted. Neuro: Level of Consciousness is awake, alert, obeys commands, Oriented to person, place, time, situation, Appropriate for age. 08:00 Reassessment: Patient appears in no apparent distress at this time. Patient and/or jp5 family updated on plan of care and expected duration. Pain level reassessed. Patient states feeling better. Patient states symptoms have improved. 09:00 Reassessment: Patient appears in no apparent distress at this time. No changes from jp5 previously documented assessment. Patient and/or family updated on plan of care and expected duration. Pain level reassessed. 10:00 Reassessment: Patient appears in no apparent distress at this time. No changes from jp5 previously documented assessment. Patient and/or family updated on plan of care and expected duration. Pain level reassessed. Patient denies pain at this time. 11:00 Reassessment: Patient appears in no apparent distress at this time. No changes from jp5 previously documented assessment. Patient and/or family updated on plan of care and expected duration. Pain level reassessed. Patient denies pain at this time. 12:00 Reassessment: Patient appears in no apparent distress at this time. No changes from jp5 previously documented assessment. Patient and/or family updated on plan of care and expected duration. Pain level reassessed. 13:00 Reassessment: Patient appears in no apparent distress at this time. No changes from jp5 previously documented assessment. Patient and/or family updated on plan of care and expected duration. Pain level reassessed. Patient is alert, oriented x 3, equal unlabored respirations, skin warm/dry/pink. Patient denies pain at this time. 14:00 Reassessment: Patient appears in no apparent distress at this time. No changes from jp5 previously documented assessment. Patient and/or family updated on plan of care and expected duration. Pain level reassessed. Patient is alert, oriented x 3, equal unlabored respirations, skin warm/dry/pink. Patient denies pain at this time. 15:00 Reassessment: Patient appears in no apparent distress at this time. No changes from jp5 previously documented assessment. Patient and/or family updated on plan of care and expected duration. Pain level reassessed. Patient is alert, oriented x 3, equal unlabored respirations, skin warm/dry/pink. Patient denies pain at this time. 16:00 Reassessment: Patient appears in no apparent distress at this time. No changes from jp5 previously documented assessment. Patient and/or family updated on plan of care and expected duration. Pain level reassessed. Patient is alert, oriented x 3, equal unlabored respirations, skin warm/dry/pink. Patient denies pain at this time. 17:00 Reassessment: Patient appears in no apparent distress at this time. No changes from 5 previously documented assessment. Patient and/or family updated on plan of care and expected duration. Pain level reassessed. Patient is alert, oriented x 3, equal unlabored respirations, skin warm/dry/pink. Patient denies pain at this time. Vital Signs: 06:14 BP 139 / 88; Pulse 61; Resp 18; Temp 97.5(O); Pulse Ox 97% on R/A; Weight 99.79 kg; al5 Height 6 ft. 1 in. ; Pain 10/10; 06:34 BP 125 / 64; Pulse 63; Resp 22; Pulse Ox 97% on R/A; kb4 07:20 BP 126 / 81 LA Supine (auto/reg); Pulse 60; Resp 20; Pulse Ox 98% ; Pain 10/10; jp5 08:00 BP 121 / 60; Pulse 65; Resp 16; Pulse Ox 96% on R/A; jp5 09:00 BP 141 / 90; Pulse 60; Resp 18; Pulse Ox 96% ; jp5 10:00 BP 105 / 58; Pulse 61; Resp 18; Pulse Ox 93% on R/A; jp5 11:00 BP 125 / 66; Pulse 60; Resp 18; Pulse Ox 98% on 3 lpm NC; jp5 12:00 BP 125 / 66; Pulse 60; Resp 16; Pulse Ox 98% on 3 lpm NC; jp5 13:00 BP 95 / 52; Pulse 60; Resp 16; Temp 98; Pulse Ox 94% on 3 lpm NC; jp5 14:00 BP 101 / 57; Pulse 60; Resp 18; Pulse Ox 97% on 3 lpm NC; jp5 15:00 BP 108 / 59; Pulse 60; Resp 16; Temp 98; Pulse Ox 99% on 3 lpm NC; jp5 16:00 BP 132 / 72; Pulse 61; Resp 16; Pulse Ox 98% on 2 lpm NC; jp5 17:00 BP 135 / 74; Pulse 61; Resp 16; Temp 98.1; Pulse Ox 98% on 2 lpm NC; jp5 06:14 Body Mass Index 29.03 (99.79 kg, 185.42 cm) al5 06:14 Pain Scale: Adult al5 07:20 Pain Scale: Adult 5 ED Course: 06:06 Patient arrived in ED. kb4 06:14 Yue Weathers, PAPA is Primary Nurse. al5 06:15 Triage completed. al5 06:17 Arm band placed on right wrist. Patient placed in the treatment room, in view of staff al5 members, on pulse oximetry. 06:18 Elias Hahn MD is Attending Physician. tw7 06:20 Patient has correct armband on for positive identification. Bed in low position. Call al5 light in reach. Side rails up X 1. Provided Education on: plan of care. 06:20 No provider procedures requiring assistance completed. al5 06:20 Inserted saline lock: 20 gauge in right upper arm, using aseptic technique. Flushed kb4 with 10 mL NS. 06:45 Door closed. Noise minimized. Lights dimmed. Warm blanket given. Verbal reassurance jp5 given. 06:50 XRAY Chest (1 view) In Process Unspecified. EDMS 07:08 CT Lumbar Spine Wo Con In Process Unspecified. EDMS 07:09 Attending Physician role handed off by Elias Hahn MD cha 07:09 Jerel Baker MD is Attending Physician. akin 08:25 First set of blood cultures drawn by al. jp5 08:[address] [facility]. bd 08:45 Second set of blood cultures drawn by me. jp5 08:47 Lactate w/ 2H reflex if indic. Sent. jp5 08:47 Blood Culture Adult (2) Sent. jp5 15:40 pt accepted in transfer to [facility] [address] Renner admin approval bd given by Jhony Barone. 15:49 Report given to PAPA Cantrell at [facility]. Pt being transferred to [facility] RM 1818. Awaiting EMS jp5 transport. Administered Medications: 06:46 Drug: morphine IVP or IV 4 mg IVP once over 4 mins Route: IVP; Infused Over: 4 mins; kb4 Site: right antecubital; 07:15 Follow up: Response: No adverse reaction; Pain is unchanged, physician notified jp5 06:46 Drug: Ondansetron IVP 4 mg IVP once; over 2 minutes Route: IVP; Site: right antecubital;kb4 07:15 Follow up: Response: No adverse reaction jp5 07:29 Drug: Famotidine IVP 20 mg IVP once; dilute with 10 mL 0.9% NaCl; give over 2 minutes jp5 Route: IVP; Site: right forearm; 08:00 Follow up: Response: No adverse reaction jp5 07:30 Drug: Diazepam PO 10 mg PO once Route: PO; jp5 08:00 Follow up: Response: No adverse reaction; Marked relief of symptoms jp5 07:30 Drug: Decadron - Dexamethasone IVP 10 mg IVP once Route: IVP; Site: right femoral; jp5 08:00 Follow up: Response: No adverse reaction jp5 09:11 Drug: Cefepime IVPB 1 grams IVPB at 200 ml/hr once over 30 mins; (mix in NS 100 mL) jp5 Route: IVPB; Rate: 200 ml/hr; Infused Over: 30 mins; Site: right antecubital; 09:41 Follow up: IV Status: Completed infusion; IV Intake: 100ml jp5 09:41 Follow up: Response: No adverse reaction jp5 09:49 Drug: vancoMYCIN IVPB 1 grams IVPB once over 2 hrs Route: IVPB; Infused Over: 2 hrs; jp5 Site: right antecubital; 11:49 Follow up: Response: No adverse reaction; IV Status: Completed infusion; IV Intake: jp5 250ml Medication: 06:17 VIS not applicable for this client. al5 Intake: 09:41 IV: 100ml; Total: 100ml. jp5 11:49 IV: 250ml; Total: 350ml. jp5 Outcome: 08:23 ER care complete, transfer ordered by MD. gerardo 17:50 Transferred by ground EMS [facility]. to other acute care facility: [facility]. jp5 Transfer form completed. X-rays sent w/ patient. 17:50 Condition: stable 17:50 Instructed on the need for transfer, Demonstrated understanding of instructions, 18:01 Patient left the ED. jp5 Signatures: Dispatcher [employer] EDMS Selene Weiss Corey, MD MD cha Pena, Jailene, RN RN jp5 Yue Weathers RN RN sunday5 Melodie Diane RN RN kb4 Elias Hahn MD MD tw7 Corrections: (The following items were deleted from the chart) 18:00 17:00 BP 132 / 72; Pulse 61bpm; Resp 16bpm; Pulse Ox 98% 2 lpm Nasal Cannula; jp5 jp5
--- NOTE | 2025-03-05 08:24 | EDPHYS ---
Physician Documentation [facility] Name: Jose Luis Albright Jr Age: 84 yrs Sex: Male : 1940 Arrival Date: 03/05/2025 Time: 06:05 Bed 5 Private MD: ED Physician Jerel Baker HPI: 03/05 06:25 This 84 yrs old Male presents to ER via EMS with complaints of Back Pain. tw7 06:25 84-year-old male with a past medical history of hypertension, hyperlipidemia, tw7 Parkinson's disease, chronic back pain presents ED with complaints of back pain. Patient reports his back pain has been ongoing for weeks to months. Patient is apparently recently hospitalized for severe back pain. Patient reports he does not remember what causes initial back pain approximately 3 months ago states been gradually worse. Patient is unable to walk at this time says due to pain. Patient says his back pain is worse with movement. He denies chest pain or shortness of breath, he denies abdominal pain, nausea or vomiting, denies fever or cough. Patient has a history of a valve replacement for which he takes Coumadin.. Historical: - Allergies: 06:15 No Known Allergies; al5 - PMHx: 06:15 Hypertensive disorder; Parkinsons; Hypercholesterolemia; al5 - PSHx: 06:15 pacemaker; valve replaced; al5 - Immunization history:: Adult Immunizations up to date. - Infectious Disease History:: Denies. - Social history:: Smoking status: Patient denies any tobacco usage or history of. ROS: 06:27 Constitutional: Negative for fever, chills, and weight loss, Eyes: Negative for injury, tw7 pain, redness, and discharge, ENT: Negative for injury, pain, and discharge, Neck: Negative for injury, pain, and swelling, Cardiovascular: Negative for chest pain, palpitations, and edema, Respiratory: Negative for shortness of breath, cough, wheezing, and pleuritic chest pain, Abdomen/GI: Negative for abdominal pain, nausea, vomiting, diarrhea, and constipation, Neuro: Negative for headache, weakness, numbness, tingling, and seizure, 06:27 MS/extremity: Positive for decreased range of motion, pain, Pain and decreased range of motion to lumbar spine, Exam: 06:28 Constitutional: This is a well developed, well nourished patient who is awake, alert, tw7 and in no acute distress. Head/Face: Normocephalic, atraumatic. Eyes: Pupils equal round and reactive to light, extra-ocular motions intact. Lids and lashes normal. Conjunctiva and sclera are non-icteric and not injected. Cornea within normal limits. Periorbital areas with no swelling, redness, or edema. ENT: Nares patent. No nasal discharge, no septal abnormalities noted. Tympanic membranes are normal and external auditory canals are clear. Oropharynx with no redness, swelling, or masses, exudates, or evidence of obstruction, uvula midline. Mucous membranes moist. Neck: Trachea midline, no thyromegaly or masses palpated, and no cervical lymphadenopathy. Supple, full range of motion without nuchal rigidity, or vertebral point tenderness. No Meningismus. Chest/axilla: Normal chest wall appearance and motion. Nontender with no deformity. No lesions are appreciated. Cardiovascular: Regular rate and rhythm with a normal S1 and S2. No gallops, murmurs, or rubs. Normal PMI, no JVD. No pulse deficits. Respiratory: Lungs have equal breath sounds bilaterally, clear to auscultation and percussion. No rales, rhonchi or wheezes noted. No increased work of breathing, no retractions or nasal flaring. Abdomen/GI: Soft, non-tender, with normal bowel sounds. No distension or tympany. No guarding or rebound. No evidence of tenderness throughout. Negative Keller's. Negative McBurney's 06:28 Back: pain, that is moderate, of the lumbar area, left low back and right low back, ROM is painful, decreased, with rotation to the right, with rotation to the left, with flexion, with extension, vertebral tenderness, is not appreciated, muscle spasm, is appreciated in the left low back and right low back, Straight leg raises: right lower extremity illicits pain, left lower extremity illicits pain, 06:37 ECG was reviewed by the Attending Physician. AV dual paced rhythm tw7 09:52 ECG was reviewed by the Attending Physician. akin Vital Signs: 06:14 BP 139 / 88; Pulse 61; Resp 18; Temp 97.5(O); Pulse Ox 97% on R/A; Weight 99.79 kg; al5 Height 6 ft. 1 in. ; Pain 10/10; 06:34 BP 125 / 64; Pulse 63; Resp 22; Pulse Ox 97% on R/A; kb4 07:20 BP 126 / 81 LA Supine (auto/reg); Pulse 60; Resp 20; Pulse Ox 98% ; Pain 10/10; jp5 08:00 BP 121 / 60; Pulse 65; Resp 16; Pulse Ox 96% on R/A; jp5 09:00 BP 141 / 90; Pulse 60; Resp 18; Pulse Ox 96% ; jp5 10:00 BP 105 / 58; Pulse 61; Resp 18; Pulse Ox 93% on R/A; jp5 11:00 BP 125 / 66; Pulse 60; Resp 18; Pulse Ox 98% on 3 lpm NC; jp5 12:00 BP 125 / 66; Pulse 60; Resp 16; Pulse Ox 98% on 3 lpm NC; jp5 13:00 BP 95 / 52; Pulse 60; Resp 16; Temp 98; Pulse Ox 94% on 3 lpm NC; jp5 14:00 BP 101 / 57; Pulse 60; Resp 18; Pulse Ox 97% on 3 lpm NC; jp5 15:00 BP 108 / 59; Pulse 60; Resp 16; Temp 98; Pulse Ox 99% on 3 lpm NC; jp5 16:00 BP 132 / 72; Pulse 61; Resp 16; Pulse Ox 98% on 2 lpm NC; jp5 17:00 BP 135 / 74; Pulse 61; Resp 16; Temp 98.1; Pulse Ox 98% on 2 lpm NC; jp5 06:14 Body Mass Index 29.03 (99.79 kg, 185.42 cm) al5 06:14 Pain Scale: Adult al5 07:20 Pain Scale: Adult jp5 MDM: 06:20 Medical Screening Exam initiated tw7 06:31 Differential diagnosis: Abdominal Aortic Aneurysm arthritis, chronic back pain, tw7 Hydronephrosis Metastatic Disease Neoplasm Pyelonephritis Renal Infarction spinal injury, vertebral fracture. 07:19 Data reviewed: vital signs, nurses notes, lab test result(s), EKG, radiologic studies, akin CT scan, MRI, ultrasound. Consideration of Admission/Observation Escalation of care including admission/observation considered. I considered the following discharge prescriptions or medication management in the emergency department Medications were administered in the Emergency Department. See MAR. Independent interpretation of the following test(s) in the Emergency Department EKG: See my EKG interpretation above. Historians other than the Patient: EMS: ems well informed. Care significantly affected by the following chronic conditions: Hypertension, valves, cardiac, parkinsonism. 03/05 06:18 Order name: Basic Metabolic Panel; Complete Time: 09:13 03/05 06:18 Order name: CBC with Diff; Complete Time: 07:59 03/05 06:18 Order name: LFT's; Complete Time: 09:13 03/05 06:18 Order name: Magnesium; Complete Time: 09:13 03/05 06:18 Order name: NT PRO-BNP; Complete Time: 09:13 03/05 06:18 Order name: PT-INR 03/05 06:18 Order name: Troponin HS; Complete Time: 09:13 03/05 08:21 Order name: Blood Culture Adult (2) [facility] 03/05 08:21 Order name: Lactate w/ 2H reflex if indic.; Complete Time: 09:57 [facility] 03/05 06:18 Order name: XRAY Chest (1 view); Complete Time: 08:16 03/05 06:22 Order name: CT Lumbar Spine Wo Con; Complete Time: 09:13 03/05 06:18 Order name: EKG; Complete Time: 06:19 03/05 06:18 Order name: Cardiac monitoring; Complete Time: 06:29 03/05 06:18 Order name: EKG - Nurse/Tech; Complete Time: 06:29 03/05 06:18 Order name: IV Saline Lock; Complete Time: 06:46 03/05 06:18 Order name: Labs collected and sent; Complete Time: 06:46 03/05 06:18 Order name: O2 Per Protocol; Complete Time: 06:21 03/05 06:18 Order name: O2 Sat Monitoring; Complete Time: 06:21 03/05 06:47 Order name: Labs - recollect needed: recollect green top; Complete Time: 07:18 bd 03/05 07:02 Order name: Labs - recollect needed: recollect blue top; Complete Time: 07:18 bd EC:37 Rate is 60 beats/min. Rhythm is regular. QRS [place] is Normal. [place] interval is normal. tw7 09:52 Rate is 60 beats/min. Rhythm is regular. QRS [place] is Normal. [place] interval is normal. QRS akin interval is normal. QT interval is normal. No Q waves. T waves are Normal. No ST changes noted. Clinical impression: Abnormal EKG without significant change and No evidence of ischemia. Interpreted by me. Reviewed by me. Administered Medications: 06:46 Drug: morphine IVP or IV 4 mg IVP once over 4 mins Route: IVP; Infused Over: 4 mins; kb4 Site: right antecubital; 07:15 Follow up: Response: No adverse reaction; Pain is unchanged, physician notified jp5 06:46 Drug: Ondansetron IVP 4 mg IVP once; over 2 minutes Route: IVP; Site: right antecubital;kb4 07:15 Follow up: Response: No adverse reaction jp5 07:29 Drug: Famotidine IVP 20 mg IVP once; dilute with 10 mL 0.9% NaCl; give over 2 minutes jp5 Route: IVP; Site: right forearm; 08:00 Follow up: Response: No adverse reaction jp5 07:30 Drug: Diazepam PO 10 mg PO once Route: PO; jp5 08:00 Follow up: Response: No adverse reaction; Marked relief of symptoms jp5 07:30 Drug: Decadron - Dexamethasone IVP 10 mg IVP once Route: IVP; Site: right femoral; jp5 08:00 Follow up: Response: No adverse reaction jp5 09:11 Drug: Cefepime IVPB 1 grams IVPB at 200 ml/hr once over 30 mins; (mix in NS 100 mL) jp5 Route: IVPB; Rate: 200 ml/hr; Infused Over: 30 mins; Site: right antecubital; 09:41 Follow up: IV Status: Completed infusion; IV Intake: 100ml jp5 09:41 Follow up: Response: No adverse reaction jp5 09:49 Drug: vancoMYCIN IVPB 1 grams IVPB once over 2 hrs Route: IVPB; Infused Over: 2 hrs; jp5 Site: right antecubital; 11:49 Follow up: Response: No adverse reaction; IV Status: Completed infusion; IV Intake: jp5 250ml Disposition Summary: 03/05/25 08:23 Transfer Ordered Notes: Transfer Location: [facility] akin Reason: Higher level of care akin Condition: Stable akin Problem: new akin Symptoms: have improved akin Accepting Physician: to [facility] (03/05/25 18:01) jp5 Diagnosis - Discitis, unspecified, lumbar region akin - Low back pain 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 Patient reports his back pain has been ongoing for weeks to months. Patient is apparently recently hospitalized for severe back pain. Patient reports he does not remember what causes initial back pain approximately 3 months ago states been gradually worse. Patient is unable to walk at this time says due to pain. Patient says his back pain is worse with movement. He denies chest pain or shortness of breath, he denies abdominal pain, nausea or vomiting, denies fever or cough.. tw7 08:17 08:17 UA Rfx Jose Cult if indicated+U.LAB.BRZ ordered. EDMS EDMS 09:14 08:23 to [facility] akin akin 11:33 09:14 to [facility] akin akin 11: 11:33 to [facility] akin akin 18:01 11:33 to [facility] akin jp5
--- NOTE | 2025-03-05 08:50 | RAD REPORT ---
EXAMINATION: CT LUMBAR SPINE WITHOUT CONTRAST CLINICAL INDICATION: Male, 84 years old. LOWER BACK PAIN TECHNIQUE: Axial CT images were obtained through the lumbar spine in soft tissue and bone windows wit hout intravenous contrast. Coronal and Sagittal reformatted images were created from the data set. One or more of the following dose reduction techniques were used: Automated exposure control, adjustm ent of the mA and/ or kV according to patient size, and/or iterative reconstruction. Unless otherwise specified, incidental findings do not require dedicated imaging follow-up. COMPARISON: CT abdomen and pelvis 02/26/2025. FINDINGS: For purposes of this dictation, it is assumed that there are 5 non rib-bearing lumbar type vertebrae, and the most caudal fully segmented lumbar vertebra is labeled L5. ALIGNMENT: The lumbar spine demonstrates normal alignment without scoliosis or spondylolisthesis. BONES: Vertebral body heights are preserved. Osseous destructive changes with recommendation along th e endplates of L4-5 anteriorly and posteriorly, without significant vertebral body height loss. DISCS: Intervertebral disc space heights are maintained. LEVELS: Facet and endplate remodeling as well as multilevel disc bulges at L4, L4-5, L5-S1. Findings contribute to mild bilateral neural foraminal narrowing at L3-4 and more so on, and moderate bilateral narrowing at L5-S1 worse on the left. Up to moderate bilateral L4-5 neural foraminal asymme try, with fat stranding more pronounced on the left. No significant central canal stenosis. SOFT TISSUE: Prevertebral paraspinous soft tissue swelling at L4-5 and L5-S1, more pronounced anterio rly and left. Dependent small gallstones near the fundus. Exophytic renal cortical low density lesions largest left upper pole posteriorly measuring 5.5 cm in greatest axial diameter, stable. Left inguinal hernia containing fat. 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 Findings could relate to ongoing discitis/osteomyelitis, less likely posttraumatic sequelae. If additional dagoberto ging evaluation is needed, contrast enhanced lumbar spine MRI with provide improved assessment. Other degenerative changes as above, to moderate, with up to bilateral moderate neural foraminal narr owing at L5-S1. THIS REPORT CONTAINS FINDINGS THAT MAY BE CRITICAL TO PATIENT CARE. The findings were verbally commun icated via telephone to Elias Hahn MD on 03/05/2025 8:20 AM.
[2025-03-05] MEDS ORDERED: NA CHLORIDE 0.9% 100 ML ONE (09:09)
[2025-03-05] MEDS ORDERED: CEFEPIME 2 GM VIAL ONE (09:09)
[2025-03-05] MEDS ORDERED: VANCOMYCIN 1 GM/VIAL ONE (09:09)
[2025-03-05] MEDS ORDERED: NA CHLORIDE 0.9% 250 ML ONE (09:17)
[2025-03-05 11:30] LABS: PT Prothrombin Time 123.3 SECONDS (10-13.0)
[2025-03-05 11:32] LABS: Protime INR 11.72
[2025-03-05 22:12] VITALS: O2SAT 98
[2025-03-05 22:14] VITALS: BP 135/74; TEMP 98.1
== END 2025-03-05 18:01 | disposition short-term general hospital (02) ==
LOC: ER 06:05
DX: M46.46 Discitis, unspecified, lumbar region (principal); T45.7X5A Adverse effect of anticoagulant antagonists, vitamin K and other coagulants, initial encounter; D72.829 Elevated white blood cell count, unspecified; Z79.01 Long term (current) use of anticoagulants; I10 Essential (primary) hypertension; Z95.0 Presence of cardiac pacemaker
CPT/HCPCS: 93005; 87040 ×2; 85025; 80048; 36415; 83735; 85610; 80076; 83605; 84484; 83880; 72131; 71045; J3370; J0692; J1100; J2405; J7050; 87205